=== PATIENT | female | born 1985 | race Caucasian/White ===

== ENCOUNTER 2020-02-06 08:27 | Emergency (ER) | payer SELFPAY ==
[2020-02-06] MEDS ORDERED: Ketorolac Tromethamine 60 MG/2 ML VIAL ONE (08:46)
[2020-02-06] MEDS ORDERED: Clindamycin 150 MG CAP ONE (08:46)
== END 2020-02-06 09:05 | disposition home or self-care (01) ==
LOC: MADERS 08:27
DX: K02.9 Dental caries, unspecified (principal); K08.89 Other specified disorders of teeth and supporting structures; F17.210 Nicotine dependence, cigarettes, uncomplicated
CPT/HCPCS: 96372; 99283; J1885